=== PATIENT | male | born 1960 | race Caucasian/White ===

== ENCOUNTER 2019-08-15 03:42 | Emergency (ER) | payer OTHER ==
--- NOTE | 2019-08-15 03:47 | EDM.PDOC ---
ED HPI GENERAL MEDICAL PROBLEM - General Chief Complaint: Chest Pain Stated Complaint: INDIGESTION, CHEST PAIN Time Seen by Provider: 08/15/19 03:46 Source of Information: Reports: Patient History Limitations: Reports: No Limitations - History of Present Illness INITIAL COMMENTS - FREE TEXT/NARRATIVE: CC chest pain HPI: This is a pleasant 58-year-old male with 17 hours of continuous substernal chest pain that he describes as a burning sensation no arm or jaw pain mild shortness of breath no diaphoresis nausea but no vomiting no melena. Patient rates his discomfort as a 7 out of 10 at maximum and a 7 out of 10 at present pain is been continuous for the 17 hours PMHX/PSHX: Hypertension Social History: Negative for tobacco, negative for alcohol, negative for street drugs or marijuana Family history: Hypertension coronary artery disease ROS: see chart PE: VS afebrile vital signs stable General: No apparent distress Head: Atraumatic normocephalic no lumps bumps or bruises Eyes: EOMI PERRLA scera white, conjuntiva pink Ears: TMs intact. No hemotympanum. No signs of infection or mastoid tenderness Nose: No epistaxis. Nares patent. No septal wall hematoma Throat: No pharyngeal erythema, exudate or tonsillar enlargement Neck: Supple. No cervical lymphadenopathy Chest wall: No point tenderness Heart: Regular rate and rhythm without murmur gallop or rub Lungs: Clear to auscultation and percussion without rale, rhonchi or wheeze. Abdomen: Soft nontender nondistended without guarding rigidity or rebound. Bowel sounds present. Neck: No spinal point tenderness full range of motion in all 6 directions Back: No spinal paraspinal or CVA tenderness Extremities: Full range of motion through out. No effusions Skin: Warm, dry and intact. No rashes, erythema or warmth Neurologic: Cranial nerves II through XII intact bilaterally. No focal motor or sensory deficits noted MDM: Differential diagnosis: Acute IA, PE, acid reflux aortic dissection ED course: EKG and troponin both negative this troponin was collected after more than 17 hours of symptom onset therefore no signs of acute coronary syndrome. Chest x-ray shows no pneumonia and a narrow mediastinum pulses in both upper extremities are equal and no qualities of an aortic dissection so I think this is unlikely. Patient's respiratory rate is 12 white count no leg or calf pain no risk factors for PE. He is PERC rule negative. Patient was slightly hypoxic here but he [place] and so I do not think this is significant is not short of breath. I suspect gastritis I do note that the patient had a negative cardiac stress test 1-1/2 years ago. Patient will be started on Protonix and will follow-up here in town or with his own doctors back in [place] soon as possible. Final Diagnosis: Chest pain, gastritis Disposition: Home chest Pain Score (Numeric/FACES): 7 - Related Data Allergies Allergy/AdvReac Type Severity Reaction Status Date / Time No Known Allergies Allergy Verified 08/15/19 03:53 ED ROS GENERAL - Review of Systems Review Of Systems: Comprehensive ROS is negative, except as noted in HPI. ED EXAM, GENERAL - Physical Exam Exam: See Below Course - Vital Signs Last Recorded V/S: Last Vital Signs Temp 36.8 C 08/15/19 03:50 Pulse 96 08/15/19 03:50 Resp 16 08/15/19 03:50 BP 172/101 H 08/15/19 03:50 Pulse Ox 94 L 08/15/19 03:50 - Orders/Labs/Meds Orders: Active Orders 24 hr Category Date Time Status EKG Documentation Completion [RC] STAT Care 08/15/19 03:48 Active Labs: Laboratory Tests 08/15/19 08/15/19 Range/Units 03:58 03:58 WBC 10.20 (4.0-11.0) K/uL RBC 5.43 (4.50-5.90) M/uL Hgb 16.3 (13.0-17.0) g/dL Hct 48.4 (38.0-50.0) % MCV 89.1 (80.0-98.0) fL MCH 30.0 (27.0-32.0) pg MCHC 33.7 (31.0-37.0) g/dL RDW Std Deviation 41.3 (28.0-62.0) fl RDW Coeff of Niecy 13 (11.0-15.0) % Plt Count 187 (150-400) K/uL MPV 9.80 (7.40-12.00) fL Neut % (Auto) 84.0 H (48.0-80.0) % Lymph % (Auto) 6.7 L (16.0-40.0) % Mccracken % (Auto) 8.2 (0.0-15.0) % Eos % (Auto) 0.9 (0.0-7.0) % Baso % (Auto) 0.2 (0.0-1.5) % Neut # (Auto) 8.6 H (1.4-5.7) K/uL Lymph # (Auto) 0.7 (0.6-2.4) K/uL Mccracken # (Auto) 0.8 (0.0-0.8) K/uL Eos # (Auto) 0.1 (0.0-0.7) K/uL Baso # (Auto) 0.0 (0.0-0.1) K/uL Nucleated RBC % 0.0 /100WBC Nucleated RBCs # 0 K/uL Sodium 139 (136-148) mmol/L Potassium 4.0 (3.5-5.1) mmol/L Chloride 104 (98-107) mmol/L Carbon Dioxide 24.4 (21.0-32.0) mmol/L BUN 17 (7.0-18.0) mg/dL Creatinine 0.9 (0.8-1.3) mg/dL Est Cr Clr Drug Dosing TNP Estimated GFR (MDRD) > 60.0 ml/min Glucose 103 (74-106) mg/dL Calcium 8.8 (8.5-10.1) mg/dL Troponin I < 0.050 (0.000-0.056) ng/mL Meds: Medications Discontinued Medications Generic Name Dose Route Start Last Admin Trade Name Samuelq PRN Reason Stop Dose Admin Aspirin 325 mg 08/15/19 03:48 08/15/19 04:05 Aspirin PO 08/15/19 03:49 325 mg ONETIME ONE Administration Al Hydroxide/Mg Hydroxide 15 0 ml 08/15/19 03:50 08/15/19 04:05 ml/ Lidocaine HCl 5 ml PO 08/15/19 03:51 1 each ONETIME ONE Administration Departure - Departure Time of Disposition: 04:50 Disposition: Home, Self-Care 01 Clinical Impression: Atypical chest pain Forms: ED Department Discharge Additional Instructions: The following information is given to patients seen in the emergency department who are being discharged to home. This information is to outline your options for follow-up care. We provide all patients seen in our emergency department with a follow-up referral. The need for follow-up, as well as the timing and circumstances, are variable depending upon the specifics of your emergency department visit. If you don't have a primary care physician on staff, we will provide you with a referral. We always advise you to contact your personal physician following an emergency department visit to inform them of the circumstance of the visit and for follow-up with them and/or the need for any referrals to a consulting specialist. The emergency department will also refer you to a specialist when appropriate. This referral assures that you have the opportunity for follow-up care with a specialist. All of these measure are taken in an effort to provide you with optimal care, which includes your follow-up. Under all circumstances we always encourage you to contact your private physician who remains a resource for coordinating your care. When calling for follow-up care, please make the office aware that this follow-up is from your recent emergency room visit. If for any reason you are refused follow-up, please contact the [facility] Emergency Department at and asked to speak to the emergency department charge nurse. Follow up as soon as possible at : [facility]. [address] [place] [id number] tel: or follow up at : [facility] [address] [place] [id number] tel: Follow-up at 1 of the above-mentioned clinics as soon as possible. Take 324 mg of aspirin daily. Return immediately i.e. call [phone] if you have ongoing pain that lasting for more than 15 minutes at a time. Sepsis Event Note - Focused Exam Vital Signs: Vital Signs Temp Pulse Resp BP Pulse Ox 08/15/19 03:50 36.8 C 96 16 172/101 H 94 L Date Exam was Performed: 08/15/19 Time Exam was Performed: 04:48 - My Orders Last 24 Hours: My Active Orders 08/15/19 03:48 EKG Documentation Completion [RC] STAT - Assessment/Plan Last 24 Hours: My Active Orders 08/15/19 03:48 EKG Documentation Completion [RC] STAT
[2019-08-15] MEDS ORDERED: Aspirin 325 MG Tab PO ONE (03:48)
[2019-08-15] MEDS ORDERED: Alum Hydrox/Mag Hydrox/Simeth 15 ML, Lidocaine 2% 5 ML PO ONE ×2 (03:50)
--- NOTE | 2019-08-15 04:08 | CR ---
INDICATION: Chest pain TECHNIQUE: Chest radiograph 1 view COMPARISON: None FINDINGS: Mediastinum: The mediastinum is normal in appearance. The heart silhouette is normal in size and morphology. Lung: Both lungs are unremarkable in appearance. No sign of pleural effusion seen. No pneumothorax is identified. Bone and Soft tissue: Unremarkable for age. IMPRESSION: 1. No acute cardiopulmonary disease is seen. Dictated by: Cristofer Mathis MD @ 08/15/2019 04:06:49 (Electronically Signed)
[2019-08-15 04:27] LABS: BLOOD UREA NITROGEN,BUN 17 mg/dL (7.0-18.0); CARBON DIOXIDE,CO2 24.4 mmol/L (21.0-32.0); CHLORIDE,CL 104 mmol/L (98-107); GLUCOSE RANDOM 103 mg/dL (74-106); SODIUM,NA 139 mmol/L (136-148)
== END 2019-08-15 05:05 | disposition home or self-care (01) ==
LOC: MW.ED 03:42
DX: K29.70 Gastritis, unspecified, without bleeding (principal); R07.89 Other chest pain; I10 Essential (primary) hypertension
CPT/HCPCS: 36415; 71045; 80048; 84484; 85025; 93005; 99285; A9270; 99283